=== PATIENT | female | born 1950 | race Caucasian/White ===

== ENCOUNTER → 2017-06-08 | Outpatient (CLI) | payer OTHER ==
--- NOTE | 2017-06-09 15:44 | MAMMOGRAPHY REPORT ---
BILATERAL DIGITAL SCREENING MAMMOGRAM TOMOSYNTHESIS WITH CAD: 06/08/2017 CLINICAL HISTORY: Routine screening. Patient has no complaints. TECHNIQUE: Breast tomosynthesis in addition to standard 2D mammography was performed. Current study was also evaluated with a Computer Aided Detection (CAD) system. COMPARISON: Comparison is made to exams dated: 11/22/2013 mammogram and 10/28/2011 mammogram - [facility]. BREAST COMPOSITION: The tissue of both breasts is extremely dense, which lowers the sensitivity of m ammography. FINDINGS: There is a possible area of architectural distortion in the slightly medial, middle to pos terior right breast on the cc view (tomosynthesis slice 18/60), for which additional spot compression tomosynthesis views and possible ultrasound are recommended. There are mild vascular calcifications in the breasts. Stable asymmetry in the posterior left breast along the posterior nipple line on the CC view. No other suspicious mass, architectural distortion o r cluster of microcalcifications is seen. IMPRESSION: ACR BI-RADS CATEGORY 0: INCOMPLETE EVALUATION: NEED ADDITIONAL IMAGING EVALUATION The possible area of architectural distortion in the slightly medial, middle to posterior right breas t on the CC view needs additional evaluation. The patient will be called to schedule an appointment. Approximately 10% of breast cancers are not detected with mammography. A negative mammographic report should not delay biopsy if a clinically suggestive mass is present. Shannan Jacob M.D. ay/:06/08/2017 16:29:45 Screw Eye Assembler: Amelia VILLAR(Shawn)(Christina), [facility] letter sent: Addl Imaging 0 BI-RADS Code: ACR BI-RADS Category 0: Incomplete Evaluation: Need Additional Imaging Evaluation
== END | disposition home or self-care (01) ==
LOC: C.MAMM 13:42
PROVIDERS: ATTEND Family Medicine
DX: Z12.31 Encounter for screening mammogram for malignant neoplasm of breast (principal); M81.0 Age-related osteoporosis without current pathological fracture; M85.851 Other specified disorders of bone density and structure, right thigh; M85.852 Other specified disorders of bone density and structure, left thigh

== ENCOUNTER → 2017-06-25 | Outpatient (CLI) | payer OTHER ==
--- NOTE | 2017-06-28 15:10 | MAMMOGRAPHY REPORT ---
UNILATERAL RIGHT DIGITAL DIAGNOSTIC MAMMOGRAM TOMOSYNTHESIS AND TARGETED RIGHT ULTRASOUND: 06/25/2017 CLINICAL HISTORY: Callback from screening mammogram for possible right breast architectural distortio n. TECHNIQUE: Breast tomosynthesis in addition to standard 2D mammography was performed. Spot compress ion right CC and MLO 2D and tomosynthesis images were obtained. COMPARISON: Comparison is made to exams dated: 06/08/2017 mammogram, 11/22/2013 mammogram, and 10/28/19 12 mammogram - [facility]. BREAST COMPOSITION: The tissue of the right breast is extremely dense, which lowers the sensitivity of mammography. FINDINGS: Spot compression views demonstrate a persistent area of probable architectural distortion a long the posterior nipple line on the cc view middle depth, without a clear correlate on the MLO view . The appearance of this region on the cc view appears similar to the 2D views from the 2012 exam. Targeted ultrasound was performed of the right 12:00, subareolar, and 6:00 breast as well as the slig htly medial right breast. The background parenchymal echotexture is markedly heterogeneous which red uces the sensitivity of the exam. In the right 12:00 periareolar breast, there is an ill-defined ar ea of hypoechoic shadowing which measures 1.1 x 1.8 cm. Another ill-defined area of shadowing is see n within the right 12:00 breast, 3 cm from the nipple which measures 1.6 x 1.0 cm. It is unclear if 1 of these areas may correspond with the mammographic distortion. The mammographic distortion remain s indeterminant and could represent the patient's normal fibroglandular tissue pattern, however, othe r considerations include a radial scar or malignancy. Recommend bilateral breast MRI to further eval uate the mammographic and sonographic findings. IMPRESSION: ACR BI-RADS CATEGORY 0: INCOMPLETE EVALUATION: NEED ADDITIONAL IMAGING EVALUATION, TARG ETED ULTRASOUND ACR BI-RADS CATEGORY 0: INCOMPLETE EVALUATION: NEED ADDITIONAL IMAGING EVALUATION Persistent area of architectural distortion within the right breast on the CC tomosynthesis images. T wo areas of ill-defined hypoechoic shadowing are seen within the right 12:00 breast on ultrasound, bu t it is unclear if these may correlate with the mammographic finding. Recommend bilateral breast MRI with contrast to further evaluate the mammographic and sonographic findings. The differential for t he findings include normal fibroglandular tissue, radial scar, or malignancy. The patient and her have been verbally notified of the results. Approximately 10% of breast cancers are not detected with mammography. A negative mammographic report should not delay biopsy if a clinically suggestive mass is present. Karen Evangelista M.D. ah/:06/25/2017 15:07:17 Box Maker: Peter VILLAR(Shawn)(M), [facility] letter sent: Addl Imaging 0 BI-RADS Code: ACR BI-RADS Category 0: Incomplete Evaluation: Need Additional Imaging Evaluation Ult rasound BI-RADS: ACR BI-RADS Category 0: Incomplete Evaluation: Need Additional Imaging Evaluation
== END | disposition home or self-care (01) ==
LOC: C.MAMM 11:22
PROVIDERS: ATTEND Family Medicine
DX: R92.8 Other abnormal and inconclusive findings on diagnostic imaging of breast (principal); N64.89 Other specified disorders of breast